=== PATIENT | female | born 1945 ===

== ENCOUNTER 2016-05-12 13:41 | Emergency (ER) | payer OTHER, SELFPAY ==
[2016-05-12 13:46] VITALS: BP 119/75; PULSE 91; RESP 18; TEMP 98; O2SAT 97
--- NOTE | 2016-05-12 14:18 | ED PDOC ---
HPI: CCC, URI, Sore Throat Time Seen by Provider: 05/12/16 13:57 Chief Complaint (Nursing): ENT Problem Chief Complaint (Provider): Right Ear Pain History Per: Patient, Family (daughter) History/Exam Limitations: no limitations Have you had recent travel within the past 21 days to any of the following countries: [place], [place], [place] or [place]?: No Onset/Duration Of Symptoms: Days (x2 weeks), Intermittent Episodes Current Symptoms Are (Timing): Still Present Sick Contacts (Context): None Associated Symptoms: Sore Throat, Cough, Sputum (phlegm), Nasal Congestion Ear Symptoms: Right: Ear Pain, Decreased Hearing, Ear Drainage (yellow/watery discharge) Severity: Moderate Additional Complaint(s): Roxanna Mullen is a 70 year old female, with no pertinent past medical history, who presents to the ED on 05/12/16 for the evaluation of moderate, intermittent right ear pain that she has experienced x2 weeks. Associated decreased hearing and yellow/watery discharge from the affected ear also reported, in addition to a phlegmy cough, nasal congestion and throat pain which she has experienced x3 weeks. Has taken no medications prior to arrival for symptom relief. PMD: none Past Medical History Reviewed: Historical Data, Nursing Documentation, Vital Signs Vital Signs: Last Vital Signs Temp 98.0 F 05/12/16 13:44 Pulse 91 H 05/12/16 13:44 Resp 18 05/12/16 13:44 BP 119/75 05/12/16 13:44 Pulse Ox 97 05/12/16 14:25 - Medical History PMH: HTN - Family History Family History: States: Unknown Family Hx - Home Medications Home Medications: Ambulatory Orders Medication Instructions Recorded Naproxen 1 tab PO Q12 PRN #20 tab 12/18/14 Methylprednisolone [Medrol Dose 4 mg PO DAILY #21 mg 05/12/16 Pack (21 tabs)] Promethazine HCl/Codeine 5 ml PO HS #80 ml 05/12/16 [Prometh-Codein 6.25-10 mg/5 ml] - Allergies Allergies/Adverse Reactions: Allergies Allergy/AdvReac Type Severity Reaction Status Date / Time No Known Allergies Allergy Verified 05/12/16 13:44 Review of Systems ENT: Positive for: Ear Pain (right), Ear Discharge (right ear (yellow/watery)), Nose Congestion, Throat Pain Respiratory: Positive for: Cough, Sputum (phlegm) Physical Exam - Reviewed Nursing Documentation Reviewed: Yes Vital Signs Reviewed: Yes - Physical Exam Appears: Positive for: Non-toxic, No Acute Distress Head Exam: Positive for: ATRAUMATIC, NORMOCEPHALIC Skin: Positive for: Normal Color, Warm, Dry ENT: Positive for: TM Is/Are (normal b/l). Negative for: Pharyngeal Erythema, Tonsillar Exudate, Tonsillar Swelling Cardiovascular/Chest: Positive for: Regular Rate, Rhythm. Negative for: Murmur Respiratory: Positive for: Normal Breath Sounds. Negative for: Respiratory Distress Neurologic/Psych: Positive for: Alert, Oriented - ECG O2 Sat by Pulse Oximetry: 97 (RA) Pulse Ox Interpretation: Normal Medical Decision Making Medical Decision Makin:03 Initial Impression: URI, TMJ otalgia; will r/o lung infiltrate Initial Plan: * CXR CXR: NAd, as read by ROSSY Scribe Attestation: Documented by Linda Proctor, acting as a scribe for Raine Elliott PA-C Provider Scribe Attestation: All medical record entries made by the Scribe were at my direction and personally dictated by me. I have reviewed the chart and agree that the record accurately reflects my personal performance of the history, physical exam, medical decision making, and the department course for this patient. I have also personally directed, reviewed, and agree with the discharge instructions and disposition. Disposition - Clinical Impression Clinical Impression: Upper respiratory infection, Otalgia - Patient ED Disposition Is Patient to be Admitted: No - Disposition Disposition: Routine/Home Disposition Time: 15:58 Condition: GOOD Prescriptions: Methylprednisolone [Medrol Dose Pack (21 tabs)] 4 mg PO DAILY #21 mg Promethazine HCl/Codeine [Prometh-Codein 6.25-10 mg/5 ml] 5 ml PO HS #80 ml Instructions: Upper Respiratory Infection (ED), Earache (ED) Print Language: BELARUSIAN - POElaine Present On Arrival: None
--- NOTE | 2016-05-12 16:23 | RAD ---
HISTORY: Cough and congestion 2 weeks duration. COMPARISON: No prior. TECHNIQUE: Chest PA and lateral FINDINGS: LUNGS: No active pulmonary disease. PLEURA: No significant pleural effusion identified. No pneumothorax apparent. CARDIOVASCULAR: No radiographic findings to suggest acute or significant cardiovascular disease. OSSEOUS STRUCTURES: No significant abnormalities. VISUALIZED UPPER ABDOMEN: Normal. OTHER FINDINGS: None. IMPRESSION: No active disease.
== END 2016-05-12 15:21 | disposition home or self-care (01) ==
LOC: H.ER 13:41
DX: H92.01 Otalgia, right ear (principal); J06.9 Acute upper respiratory infection, unspecified; J02.9 Acute pharyngitis, unspecified; R05 Cough; I10 Essential (primary) hypertension